=== PATIENT | female | born 1960 | race Caucasian/White ===

== ENCOUNTER 2017-11-22 09:05 | Outpatient (CLI) | payer OTHER | END 2017-11-22 09:06 | disposition home or self-care (01) | LOC: BICMRI 09:05 | PROVIDERS: ATTEND Anesthesiology Pain Medicine | DX: M50.20 Other cervical disc displacement, unspecified cervical region (principal); M47.892 Other spondylosis, cervical region | CPT/HCPCS: 72052; 72141 ==

== ENCOUNTER 2018-10-07 16:01 | Outpatient (CLI) | payer OTHER | END 2018-10-07 16:02 | disposition home or self-care (01) | LOC: BICMAMMO 16:01 | PROVIDERS: ATTEND Family Medicine | DX: Z12.31 Encounter for screening mammogram for malignant neoplasm of breast (principal) | CPT/HCPCS: 77063; 77067 ==

== ENCOUNTER 2020-09-01 07:43 | Outpatient (CLI) | payer OTHER ==
--- NOTE | 2020-09-01 08:15 | MMO ---
Bilateral MAMMO Bilat Screen [facility]. CLINICAL HISTORY: Patient is 60 years old and is seen for screening. The patient has no family history of breast cancer. The patient has no personal history of cancer. VIEWS: The views performed were: bilateral craniocaudal with tomosynthesis and bilateral mediolateral oblique with tomosynthesis. FILMS COMPARED: The present examination has been compared to prior imaging studies performed at [facility] on 06/02/2014, 11/16/2015, 12/06/2016 and 10/07/2018. This study has been interpreted with the assistance of computer-aided detection. MAMMOGRAM FINDINGS: There are scattered fibroglandular densities. There are stable vascular calcifications seen in the left breast. There are no suspicious masses, suspicious calcifications, or new areas of architectural distortion. IMPRESSION: THERE IS NO MAMMOGRAPHIC EVIDENCE OF MALIGNANCY. A ROUTINE FOLLOW-UP MAMMOGRAM IN 1 YEAR IS RECOMMENDED. THE RESULTS OF THIS EXAM WERE SENT TO THE PATIENT. ACR BI-RADS Category 2 - Benign finding MAMMOGRAPHY NOTE: 1. A negative mammogram report should not delay a biopsy if a dominant of clinically suspicious mass is present. 2. Approximately 10% to 15% of breast cancers are not detected by mammography. 3. Adenosis and dense breasts may obscure an underlying neoplasm. Reported by: YSABEL LANIER MD Electonically Signed: [id number]
== END 2020-09-01 07:44 | disposition home or self-care (01) ==
LOC: BICMAMMO 07:43
PROVIDERS: ATTEND Family Medicine
DX: Z12.31 Encounter for screening mammogram for malignant neoplasm of breast (principal)
CPT/HCPCS: 77063; 77067

== ENCOUNTER 2021-01-07 12:00 | Outpatient (CLI) | payer OTHER | END 2021-01-07 12:01 | disposition home or self-care (01) | LOC: BICMRI 12:00 | PROVIDERS: ATTEND Anesthesiology Pain Medicine | DX: M50.10 Cervical disc disorder with radiculopathy, unspecified cervical region (principal); M47.22 Other spondylosis with radiculopathy, cervical region; M47.24 Other spondylosis with radiculopathy, thoracic region | CPT/HCPCS: 72141; 72146 ==

== ENCOUNTER 2021-05-11 12:41 | Outpatient (CLI) | payer OTHER | END 2021-05-11 12:42 | disposition home or self-care (01) | LOC: DTY/OP 12:41 | PROVIDERS: ATTEND Family Medicine | DX: E11.9 Type 2 diabetes mellitus without complications (principal) | CPT/HCPCS: 97802 ==

== ENCOUNTER 2023-07-19 13:19 | Outpatient (CLI) | payer MEDICARE, OTHER | END 2023-07-19 13:20 | disposition home or self-care (01) | LOC: SCSMRI 13:19 | PROVIDERS: ATTEND Anesthesiology Pain Medicine | DX: M51.24 Other intervertebral disc displacement, thoracic region (principal); M50.20 Other cervical disc displacement, unspecified cervical region; M47.812 Spondylosis without myelopathy or radiculopathy, cervical region; M43.12 Spondylolisthesis, cervical region | CPT/HCPCS: 72052; 72141; 72146 ==

== ENCOUNTER 2024-02-11 07:31 | Outpatient (CLI) | payer MEDICARE, OTHER | END 2024-02-11 07:32 | disposition home or self-care (01) | LOC: SCSMRI 07:31 | PROVIDERS: ATTEND Nurse Practitioner Family | DX: M48.062 Spinal stenosis, lumbar region with neurogenic claudication (principal); M51.36 Other intervertebral disc degeneration, lumbar region | CPT/HCPCS: 72148 ==

== ENCOUNTER → 2024-07-30 | Outpatient (CLI) | payer MEDICARE, OTHER | LOC: BICMAMMO 10:34 | PROVIDERS: ATTEND Family Medicine | DX: Z12.31 Encounter for screening mammogram for malignant neoplasm of breast (principal); M81.0 Age-related osteoporosis without current pathological fracture; M85.89 Other specified disorders of bone density and structure, multiple sites | CPT/HCPCS: 77063; 77067; 77080 ==

== ENCOUNTER 2024-10-03 14:53 | Outpatient (CLI) | payer MEDICARE, OTHER | END 2024-10-03 14:54 | disposition home or self-care (01) | LOC: BICMRI 14:53 | PROVIDERS: ATTEND Family Medicine Sports Medicine | DX: M25.475 Effusion, left foot (principal); M79.89 Other specified soft tissue disorders ==